=== PATIENT | male | born 1955 | race Caucasian/White ===

== ENCOUNTER 2020-10-11 07:55 | Day surgery (SDC) | payer MEDICARE, OTHER ==
[2020-10-11] MEDS ORDERED: Sodium Chloride 0.9% 1,000 ML IV SCH (08:00)
[2020-10-11] MEDS ORDERED: Sodium Chloride 0.9% 10 ML Syringe FLUSH PRN (08:00)
[2020-10-11] MEDS ORDERED: Midazolam 1 MG/ML 2 ML SDV ONE (09:03)
[2020-10-11] MEDS ORDERED: Propofol 200 MG/20 ML SDV ONE (09:03)
--- NOTE | 2020-10-11 09:26 | PCM.PN ---
- General Info Date of Service: 10/11/20 - Review of Systems Systems Review Comment:: 65-year-old male referred for screening colonoscopy. It has been many years since his last colon exam. The patient does have a history of prior partial colon resection for diverticular disease. He denies any recent changes in bowel pattern. He also denies any known family history of colon cancer. Patient's history and physical is reviewed and no significant changes are noted. I have discussed the proposed colonoscopy with the patient. Risks such as but not limited to bleeding and GI injury reviewed. He agrees to proceed. - Patient Data Vitals - Most Recent: Last Vital Signs Temp Pulse 85 10/11/20 08:12 Resp 16 10/11/20 08:12 BP 152/84 H 10/11/20 08:12 Pulse Ox 98 10/11/20 08:12 Weight - Most Recent: 85.275 kg Lab Results Last 24 Hours: Laboratory Results - last 24 hr 10/11/20 Range/Units 08:22 POC Glucose 124 (70-140) mg/dL Med Orders - Current: Current Medications Sodium Chloride (Normal Saline) 1,000 mls @ 50 mls/hr IV ASDIRECTED [facility] Last Admin: 10/11/20 08:13 Dose: 50 mls/hr Documented by: Sodium Chloride (Sodium Chloride 0.9% 10 Ml Syringe) 10 ml FLUSH Q8HR PRN PRN Reason: keep vein open Discontinued Medications Midazolam HCl (Midazolam 1 Mg/Ml 2 Ml Sdv) Confirm Administered Dose 2 mg .ROUTE .STK-MED ONE Stop: 10/11/20 09:04 Propofol (Propofol 200 Mg/20 Ml Sdv) Confirm Administered Dose 400 mg .ROUTE .STK-MED ONE Stop: 10/11/20 09:04 - Patient Data Lab Results Last 24 hrs: Laboratory Results - last 24 hr 10/11/20 Range/Units 08:22 POC Glucose 124 (70-140) mg/dL Sepsis Event Note - Focused Exam Vital Signs: Vital Signs Pulse Resp BP Pulse Ox 10/11/20 08:12 85 16 152/84 H 98 - Problem List Review Problem List Initiated/Reviewed/Updated: Yes - My Orders Last 24 Hours: My Active Orders 10/11/20 08:00 Peripheral IV Care [RC] . DIRECTED Nothing Per Oral Diet [DIET] Sodium Chloride 0.9% [Normal Saline] 1,000 ml IV ASDIRECTED Sodium Chloride 0.9% [Saline Flush] 10 ml FLUSH Q8HR PRN Peripheral IV Insertion Adult [OM.PC] Routine 10/11/20 09:00 Verify Patient Consent Obtain [RC] ASDIRECTED - Assessment Assessment:: Colon cancer screening - Plan Plan:: Colonoscopy
--- NOTE | 2020-10-11 10:14 | PCM.OPNOTE ---
- General Post-Op/Procedure Note Date of Surgery/Procedure: 10/11/20 Operative Procedure(s): Colonoscopy with polypectomy Findings: Multiple colon polyps Previous sigmoid colectomy with normal-appearing anastomosis Pre Op Diagnosis: Colon cancer screening Post-Op Diagnosis: Colon polyps Anesthesia Technique: MAC Primary Surgeon: Osei Fairchild Pathology: Colon polyps EBL in mLs: 0 Complications: None Condition: Good
--- NOTE | 2020-10-11 11:25 | OR ---
DATE OF SURGERY: 10/11/2020 SURGEON: Osei Fairchild MD PREOPERATIVE DIAGNOSIS: Colon cancer screening. POSTOPERATIVE DIAGNOSIS: Colon polyps. OPERATION PERFORMED: Colonoscopy with polypectomy. INDICATIONS FOR SURGERY: This 65-year-old male comes for screening colonoscopy. It has been several years since his prior colonoscopy. FINDINGS: Three polyps are noted during today's exam. There is a 1 cm sessile polyp in the ascending colon, an 8 mm sessile polyp in the proximal transverse colon and a 5 mm sessile polyp in the distal transverse colon. The patient has also had a previous sigmoid colectomy for diverticular disease. There is some scattered diverticuli near the anastomosis, which do not appear to be acutely inflamed or otherwise complicated. The anastomosis appears normal. DESCRIPTION OF PROCEDURE: The patient was taken to the operating room. He was given intravenous sedation, and with him in the left lateral decubitus position, digital rectal exam was performed showing no rectal masses. The Olympus colonoscope was inserted into the rectum. Retroflexed examination of the rectal canal was performed. The scope was then carefully advanced under direct visualization through the entire length of the colon until the cecum was reached. Cecal acquisition was confirmed by noting the normal internal cecal anatomy including the appendiceal orifice and the ileocecal valve. The light was also noted to transilluminate the abdominal wall in the right lower quadrant. The scope was then slowly withdrawn sequentially re-examining the colonic segments. During withdrawal of the scope, the above-described polyps were identified. These were each removed with a cautery snare and retrieved. No sign of any bleeding or any other complication was noted during the exam. After the entire colon and rectum had been fully examined, the scope was removed, and the patient was taken from the operating room in satisfactory condition. ESTIMATED BLOOD LOSS: Zero. COMPLICATIONS: None. PROGNOSIS: Good. /[id number]/MODL
== END 2020-10-11 11:20 | disposition home or self-care (01) ==
LOC: KA.SDS 07:55
PROVIDERS: ATTEND Surgery
DX: Z12.11 Encounter for screening for malignant neoplasm of colon (principal); D12.2 Benign neoplasm of ascending colon; D12.3 Benign neoplasm of transverse colon; D12.4 Benign neoplasm of descending colon; K57.30 Diverticulosis of large intestine without perforation or abscess without bleeding; E11.9 Type 2 diabetes mellitus without complications; E78.1 Pure hyperglyceridemia; I10 Essential (primary) hypertension; R20.9 Unspecified disturbances of skin sensation; Z68.31 Body mass index [BMI] 31.0-31.9, adult; Z79.82 Long term (current) use of aspirin; Z79.84 Long term (current) use of oral hypoglycemic drugs; Z80.0 Family history of malignant neoplasm of digestive organs; Z87.891 Personal history of nicotine dependence; Z98.890 Other specified postprocedural states
CPT/HCPCS: 00812; 82947; J2250; J2704; J7030